=== PATIENT | female | born 1975 | race Caucasian/White ===

== ENCOUNTER → 2017-12-28 12:07 | Outpatient (CLI) | payer OTHER, SELFPAY ==
--- NOTE | 2017-12-28 12:11 | BI_ITS ---
MAMMOGRAPHY - BILATERAL SCREENING REASON FOR EXAM: Female, 42 years old. Routine annual screening examination. PERTINENT HISTORY: Aunt with breast cancer. Prior left needle biopsy. TECHNIQUE: Digital bilateral breast rodrigo (3D mammographic acquisition) in the CC and MLO projections. 2-D mediolateral oblique (MLO) and craniocaudad (CC) views of both breasts were obtained. CAD: Full Field Digital Mammography with Computer Added Detection was performed. COMPARISON: Comparison is made with prior study dated December 08, 2016. FINDINGS: Breast Composition: The breasts are heterogeneously dense, which may obscure small masses. There are no dominant masses or suspicious calcifications. A tissue clip marker is once again seen in the upper lateral portion of the left breast. No other significant abnormalities are identified. There has been no significant change since the prior study. BI/SCREENING MAMM (CAD), BILAT IMPRESSION: Stable bilateral screening mammogram. Yearly follow-up mammogram recommended. (A) ASSESSMENT CATEGORY: BIRADS Category 2: Benign. A letter regarding these results will be sent to the patient by the facility within 30 days. Approximately 10% of breast cancers are not detected by mammography. A normal mammogram should not delay biopsy of a clinically suspicious abnormality. [id number] Electronically Signed: Nathan Engel MD at 14:29 EDT Tel [phone], Service support ,
== END ==
PROVIDERS: Visit Provider Nurse Practitioner Women's Health
DX: Z12.31 Encounter for screening mammogram for malignant neoplasm of breast (principal)
CPT/HCPCS: 77063; 77067

== ENCOUNTER → 2018-08-09 10:22 | Outpatient (CLI) | payer OTHER, SELFPAY ==
[2018-06-14 13:39] VITALS: BMI 33.1
[2018-08-09 12:21] LABS: Absolute Lymphocyte Count 1.96 X10^3/ul (0.83-4.51); Absolute Neutrophil Count 3.7 X10^3/uL (2.0-7.7); Basophil# 0.04 X10^3/uL; Basophil% 0.6 % (0-1); Eosinophil# 0.17 X10^3/uL; Eosinophils% 2.7 % (0-5); Hematocrit 42.4 % (37-47); Hemoglobin 14.5 g/dl (12.0-15.0); Lymphocyte # 1.96 X10^3/ul (4.0); Lymphocyte % 31.4 % (19-41); Mean Corp Hgb Conc 34.2 g/gl (32-36); Mean Corpuscular Volume 90.8 fL (81-99); Monocyte# 0.37 X10^3/uL; Monocyte% 5.9 % (0-10); Neutrophil # 3.71 X10^3/uL (2.7-7.7); Neutrophil % 59.4 % (47-70); Platelet Count 374 K/mm3 (150-450); RBC Distribution Width CV 13.2 % (11.6-14.6); RBC Distribution Width SD 43.3 fl (35.1-43.9); Red Blood Count 4.67 M/mm3 (4.2-5.4); White Blood Count 6.3 K/mm3 (4.4-11.0)
[2018-08-09 12:25] LABS: POSITIVE COUNT NO; POSITIVE DIFFERENTIAL NO; POSITIVE MORPHOLOGY NO
[2018-08-09 12:31] LABS: Anion Gap 6 (5-15); BUN 11 mg/dL (7-18); Calcium,Total 8.5 mg/dL (8.5-10.1); Chloride 107 mmol/L (98-107); Cholesterol 214 mg/dL (200); Creatinine, Serum 0.92 mg/dL (0.55-1.02); EST Glomerular Filtration Rate 71 mL/min (>60); Est Glom Filt Rate - Afr Amer 86 mL/min (>60); Glucose 90 mg/dL (74-106); High Density Lipoprotein 54 mg/dL; Potassium 4.4 mmol/L (3.5-5.1); Sodium Level 140 mmol/L (136-145); Triglycerides 119 mg/dL; Very Low Density Lipoprotein 24 mg/dL (5-40)
[2018-08-09 12:33] LABS: Hemoglobin A1c 5.4 % (4.2-6.3)
== END ==
PROVIDERS: PCP Internal Medicine; Visit Provider Internal Medicine
DX: E78.5 Hyperlipidemia, unspecified (principal); E66.9 Obesity, unspecified; G43.909 Migraine, unspecified, not intractable, without status migrainosus
CPT/HCPCS: 36415; 80048; 80061; 83036; 85025

== ENCOUNTER → 2019-01-10 13:13 | Outpatient (CLI) | payer OTHER, SELFPAY ==
[2018-06-14 13:39] VITALS: BMI 33.1
--- NOTE | 2019-01-10 13:15 | BI_ITS ---
BILATERAL DIGITAL MAMMOGRAM WITH TOMOSYNTHESIS: Mediolateraloblique and craniocaudal views demonstrate no evidence of dominant parenchymal masses. No cluster of microcalcifications or architectural distortion is seen. No evidence of skin thickening is identified. There has been no significant change since 12/28/2017. Breast Density: The breast tissue is extremely dense which may lower the sensitivity of mammography. CAD was used to assist in final assessment. BI/SCREEN MAMM (CAD) W/JOSE BILAT IMPRESSION: NORMAL MAMMOGRAM BILATERALLY. ASSESSMENT CATEGORY: FINAL ASSESSMENT: BI-RAD CATEGORY I (NEGATIVE) YEARLY MAMMOGRAPHY RECOMMENDED Approximately 10% of breast cancers are not detected by mammography. A normal mammogram should not delay biopsy of a clinically suspicious abnormality. [id number] Electronically Signed: Donavan Liao, at 17:37 EDT Tel , Service support ,
== END ==
PROVIDERS: Family Provider Internal Medicine; PCP Internal Medicine; Referring Provider Nurse Practitioner Women's Health; Visit Provider Nurse Practitioner Women's Health
DX: Z12.31 Encounter for screening mammogram for malignant neoplasm of breast (principal)
CPT/HCPCS: 77063; 77067

== ENCOUNTER → 2019-05-10 09:36 | Outpatient (CLI) | payer OTHER, SELFPAY ==
[2019-05-10 09:20] VITALS: BMI 33.1
[2019-05-10 13:05] LABS: T4 Free Direct 0.91 ng/dL (0.76-1.46)
== END ==
PROVIDERS: PCP Internal Medicine; Referring Provider Internal Medicine; Visit Provider Internal Medicine
DX: N92.6 Irregular menstruation, unspecified (principal)
CPT/HCPCS: 36415; 84439; 84443

== ENCOUNTER → 2019-08-22 14:27 | Outpatient (CLI) | payer OTHER, SELFPAY ==
[2019-08-22 08:26] VITALS: BMI 33.1
[2019-08-28 06:50] LABS: HPV APTIMA, High Risk Negative (Negative)
== END ==
PROVIDERS: PCP Internal Medicine; Referring Provider Nurse Practitioner Women's Health; Visit Provider Nurse Practitioner Women's Health
DX: Z12.4 Encounter for screening for malignant neoplasm of cervix (principal)
CPT/HCPCS: 87624; 88175; G0145

== ENCOUNTER → 2019-10-17 14:17 | Outpatient (CLI) | payer OTHER, SELFPAY ==
[2019-10-17 13:40] VITALS: BMI 29.5
[2019-10-17 15:21] LABS: Absolute Lymphocyte Count 1.72 X10^3/uL (0.83-4.51); Absolute Neutrophil Count 5.8 X10^3/uL (2.0-7.7); Basophil# 0.06 X10^3/uL; Basophil% 0.7 % (0-1); Eosinophil# 0.18 X10^3/uL; Eosinophils% 2.1 % (0-5); Hematocrit 40.6 % (37-47); Hemoglobin 13.2 g/dL (12.0-15.0); Lymphocyte # 1.72 X10^3/ul (4.0); Lymphocyte % 20.3 % (19-41); Mean Corp Hgb Conc 32.5 g/dL (32-36); Mean Corpuscular Hgb 29.7 pg (27.0-32.0); Mean Corpuscular Volume 91.4 fL (81-99); Mean Platelet Vol. 10.2 fl (6.2-12.0); Monocyte# 0.68 X10^3/uL; NRBC Flagged by Analyzer 0 % (0-5); Neutrophil # 5.83 X10^3/uL (2.7-7.7); Neutrophil % 68.7 % (47-70); Platelet Count 418 K/mm3 (150-450); RBC Distribution Width SD 46.8 fl (35.1-43.9); Red Blood Count 4.44 M/mm3 (4.2-5.4); White Blood Count 8.5 K/mm3 (4.4-11.0)
[2019-10-17 16:14] LABS: AST(SGOT) 21 U/L (15-37); Alanine Aminotransfer ALT/SGPT 34 U/L (13-56); Albumin, Serum 3.5 g/dL (3.2-5.0); Alkaline Phosphatase 101 U/L (45-117); Anion Gap 4 (5-15); BUN 12 mg/dL (7-18); BUN/Creat Ratio 14.9 RATIO (10-20); Calcium,Total 8.6 mg/dL (8.5-10.1); Chloride 106 mmol/L (98-107); Cholesterol 190 mg/dL (200); Creatinine, Serum 0.81 mg/dL (0.55-1.02); EST Glomerular Filtration Rate 82 mL/min (>60); Est Glom Filt Rate - Afr Amer 99 mL/min (>60); Globulin 3.6 g/dL (2.2-4.2); Glucose 70 mg/dL (74-106); High Density Lipoprotein 62 mg/dL; Potassium 3.7 mmol/L (3.5-5.1); Protein, Total 7.1 g/dL (6.4-8.2); Sodium Level 138 mmol/L (136-145); Triglycerides 102 mg/dL; Very Low Density Lipoprotein 20 mg/dL (5-40)
== END ==
PROVIDERS: PCP Internal Medicine; Referring Provider Internal Medicine; Visit Provider Internal Medicine
DX: E78.5 Hyperlipidemia, unspecified (principal); I10 Essential (primary) hypertension
CPT/HCPCS: 36415; 80053; 80061; 85025

== ENCOUNTER → 2020-02-06 10:31 | Outpatient (CLI) | payer OTHER, SELFPAY ==
[2019-10-17 13:40] VITALS: BMI 29.5
[2020-01-23 14:44] VITALS: BMI 28.4
--- NOTE | 2020-02-06 10:32 | BI_ITS ---
MAMMOGRAPHY - BILATERAL SCREENING REASON FOR EXAM: Female, 44 years old. Routine annual screening examination. PERTINENT HISTORY: Aunt with breast cancer. Prior left needle biopsy. TECHNIQUE: Digital bilateral breast jose (3D mammographic acquisition) in the CC and MLO projections. 2-D mediolateral oblique (MLO) and craniocaudad (CC) views of both breasts were obtained. CAD: Full Field Digital Mammography with Computer Added Detection was performed. COMPARISON: Comparison is made with prior examination dated 01/10/2019 and 12/28/2017. FINDINGS: Breast Composition: The breasts are heterogeneously dense, which may obscure small masses. There are no dominant masses or suspicious calcifications. No other significant abnormalities are identified. There has been no significant change since the prior study. BI/SCREEN MAMM (CAD) W/JOSE BILAT IMPRESSION: Stable bilateral screening mammogram. Yearly follow-up mammogram recommended. (A) ASSESSMENT CATEGORY: BIRADS Category 2: Benign. A letter regarding these results will be sent to the patient by the facility within 30 days. Approximately 10% of breast cancers are not detected by mammography. A normal mammogram should not delay biopsy of a clinically suspicious abnormality. [id number] Electronically Signed: Nathan Engel, at 11:29 EST , Service support ,
== END ==
PROVIDERS: PCP Internal Medicine; Referring Provider Obstetrics & Gynecology; Visit Provider Obstetrics & Gynecology
DX: Z12.31 Encounter for screening mammogram for malignant neoplasm of breast (principal)
CPT/HCPCS: 77063; 77067

== ENCOUNTER → 2020-09-14 11:15 | Outpatient (CLI) | payer OTHER, SELFPAY ==
[2020-09-14 11:03] VITALS: BMI 28.0
[2020-09-14 12:26] LABS: Absolute Lymphocyte Count 1.48 X10^3/uL (0.83-4.51); Absolute Neutrophil Count 4.5 X10^3/uL (2.0-7.7); Basophil% 1.4 % (0-1); Eosinophils% 4.2 % (0-5); Hematocrit 41.3 % (37-47); Hemoglobin 13.6 g/dL (12.0-15.0); Lymphocyte # 1.48 X10^3/ul (0.83-4.51); Lymphocyte % 20.9 % (19-41); Mean Corp Hgb Conc 32.9 g/dL (32-36); Mean Corpuscular Hgb 28.6 pg (27.0-32.0); Mean Corpuscular Volume 86.9 fL (81-99); Mean Platelet Vol. 10.1 fl (6.2-12.0); Monocyte# 0.72 X10^3/uL; Monocyte% 10.2 % (0-10); NRBC Flagged by Analyzer 0 % (0-5); Neutrophil # 4.46 X10^3/uL (2.7-7.7); Platelet Count 457 K/mm3 (150-450); RBC Distribution Width CV 14.6 % (11.6-14.6); RBC Distribution Width SD 46.7 fl (35.1-43.9); Red Blood Count 4.75 M/mm3 (4.2-5.4); White Blood Count 7.1 K/mm3 (4.4-11.0)
[2020-09-14 12:57] LABS: ALB/GLOB Ratio 0.9 RATIO (0.9-2.4); AST(SGOT) 19 U/L (15-37); Alanine Aminotransfer ALT/SGPT 23 U/L (13-56); Albumin, Serum 3.5 g/dL (3.2-5.0); Alkaline Phosphatase 101 U/L (45-117); Anion Gap 6 (5-15); BUN 7 mg/dL (7-18); BUN/Creat Ratio 8.3 RATIO (10-20); Calcium,Total 8.6 mg/dL (8.5-10.1); Chloride 106 mmol/L (98-107); Cholesterol 220 mg/dL (200); Creatinine, Serum 0.84 mg/dL (0.55-1.02); EST Glomerular Filtration Rate 78 mL/min (>60); Est Glom Filt Rate - Afr Amer 94 mL/min (>60); Globulin 3.8 g/dL (2.2-4.2); Glucose 79 mg/dL (74-106); High Density Lipoprotein 72 mg/dL; Potassium 3.5 mmol/L (3.5-5.1); Protein, Total 7.3 g/dL (6.4-8.2); Sodium Level 139 mmol/L (136-145); Triglycerides 205 mg/dL; Very Low Density Lipoprotein 41 mg/dL (5-40)
== END ==
PROVIDERS: PCP Internal Medicine; Referring Provider Internal Medicine; Visit Provider Internal Medicine
DX: I10 Essential (primary) hypertension (principal); E78.5 Hyperlipidemia, unspecified; G44.209 Tension-type headache, unspecified, not intractable
CPT/HCPCS: 36415; 80053; 80061; 85025

== ENCOUNTER 2021-01-28 08:24 | Day surgery (SDC) | payer OTHER, SELFPAY ==
[2021-01-28 08:53] VITALS: BP 128/90; PULSE 83; RESP 18; TEMP 36.7; O2SAT 99; BMI 32.3
[2021-01-28 08:54] LABS: Internal QC Validated? YES +Cl - CLEAR BKGD; Pregnancy, Urine Negative Negative
[2021-01-28] MEDS: Lactated Ringers 1,000 ML 100 ML IV (09:06)
--- NOTE | 2021-01-28 09:45 | COLBX_PTH ---
PATIENT: OTTO HART LOC: EN U#:[id number] AGE/SX: 45/F ROOM: RE01/28/[address]: Dr. Rashid Cordon MD : 1975 BED: DIS: 01/28/2021 SPEC #: [id number] RECD: 01/28/21 15:11 STATUS: NILDA STRICKLAND #: [id number] CAMMY: 01/28/21 09:[address]: Rashid Cordon DEPT: SURGICAL PATHOLOGY RECD BY: Maryan Castillo ENTERED: 01/29/21 07:35 SP TYPE: COLON BX OTHR DR: Dr. Lilliana Hall MD Tissues: A - Transverse colon B - Rectum, NOS Procedures: Surgery Specimen Level IV HEADER OPERATION: Colonoscopy (MAC) PRE-OP DIAGNOSIS: Positive colorectal cancer screening using Cologuard TISSUE SUBMITTED: A ? Proximal transverse colon polyp, B ? Rectal polyp MICROSCOPIC DIAGNOSIS A. Proximal transverse colon polyp, biopsy: Fragments of tubular adenoma. B. Rectal polyp, biopsy: Hyperplastic polyp. KEYONNA:adeel 02/01/2021 MICROSCOPIC DESCRIPTION Slides are reviewed. GROSS DESCRIPTION A - Received in fixative is one container labeled with the patient's name and designated proximal transverse colon polyp. The specimen consists of a hernandez-pink polyp measuring 1.2 x 1 x 1 cm. The polyp is serially sectioned. Also present in the container are multiple fragments of hernandez-pink soft tissue measuring in aggregate 1.5 x 0.3 x 0.1 cm. The entire specimen is submitted in one cassette. B - Received in fixative is one container labeled with the patient's name and designated rectal polyp. The specimen consists of one irregular fragment of light hernandez soft tissue that measures 0.2 x 0.2 x 0.1 cm. The specimen is totally submitted in one cassette. / KEYONNA:adeel 01/29/21 TC:1 CPT: 36628 x2
--- NOTE | 2021-01-28 10:23 | PCM.HP.BLA ---
History and Physical Date of Admission: 01/28/21 Date of Service: 01/07/21 MR#:[id number]:[id number]: OTTO FRANCISCO [facility] #:[id number]:1975 Provider:Troy Calderon/Sex: 45/F [facility] Vital Signs 01/07/21 13:06 Height 5 ft 6 in Weight: 203 lb 6 oz BMI 32.8 BP 131/86 H Blood Pressure Location Rt brachial Position Sitting Respiration 18 Pulse 76 Pulse Source Monitor Temp 97.7 F L Temp Source Temporal Pulse Oximetry (%) 100 Oxygen Delivery Method room air Intake Visit Reasons: CSCOPE, FIT TEST Chief Complaint: Colonoscopy consult [employer] Required: No Is patient in pain?: No Allergies Latex, Natural Rubber Adverse Reaction (Verified 01/07/21 13:07) rash Medications omeprazole 20 mg tablet,delayed release 20 mg PO DAILY 02/08/18 [History Confirmed 01/07/21] ibuprofen 200 mg tablet 200 mg PO TID-QID PRN 06/14/18 [History Confirmed 01/07/21] duloxetine 30 mg capsule,delayed release 30 mg PO DAILY #90 cap 04/23/20 [Rx Confirmed 01/07/21] amlodipine 10 mg tablet See Rx Instructions .ROUTE .COMPLEX #30 tab 06/04/20 [Rx Confirmed 01/07/21] PFSH Medical History Breast lump Health care maintenance Migraines Positive colorectal cancer screening using Cologuard test Right Achilles tendinitis Surgical History H/O dilation and curettage H/O LEEP History of breast biopsy Family History Aunt Breast cancer Mother Melanoma Arthritis Diabetes Skin cancer Lung cancer Father Arthritis Diabetes Aunt Diabetes Grandfather Diabetes Grandfather Myocardial infarction CVA (cerebral vascular accident) Grandmother Myocardial infarction Social History number of children: 0 current occupational status: employed current occupation: [employer] Smoking Status: Never smoker alcohol intake: current alcohol intake frequency: holidays/special occasions only substance use type: does not use what type of physical activity do you participate in: walking seatbelt use: always do you feel safe at home: Yes additional social history: [employer] Ret[employer] Female Reproductive History Menstrual Ab spontaneous: 1 HPI HPI HPI: OTTO FRANCISCO, is a 45 F who presents to the office today for need to schedule diagnostic colonoscopy secondary to positive Cologuard that was performed routinely for insurance purposes. They are referred for surgical consultation from Dr. Hall. Patient has not had prior colonoscopy. Patient has no personal history of inflammatory bowel disease, diverticulitis, or colon cancer. They describe their bowel habits as characterized by mild constipation. They have approximately 1-2 bowel movements per day and do not spend significant time on the toilet but there is occasionally some significant straining. The stool itself is described as rabbit pellets. On rare occasion, Ms. Francisco sees experiences hemorrhoid problems but these are usually mild in nature and associated with some occasional bleeding, itching, and tissue protrusion. She notes this is not occurred anytime recently. Guarding her constipation, Ms. Francisco confirms she drinks plenty of water, but admits to eating a lot of cheese recently and her diet has not been as replete with vegetables given some social stressors of late. They do not regularly take fiber supplements. Patient has no family history of inflammatory bowel disease, diverticulitis, or colon cancer. The patient's weight is not stable and she admits to a approximately 20 pound weight gain, again related to the social stressors after mentioned. Ms. Francisco is asked about her history of gastroesophageal reflux disease for which she is currently prescribed omeprazole milligrams daily. She states that this medication has helped greatly in reducing her symptomatology. She occasionally notices symptoms with particularly spicy meals or when eating late in the day. She confirms that she is miserable without the medication but denies any breakthrough nausea or vomiting and overall states her symptoms are under good control. Ms. Francisco does not take anticoagulation/blood thinners of any kind. ROS General General: No weight change, appetite, fatigue, colon cancer, breast cancer or weakness HEENT HEENT: No difficulty swallowing, eye injury, eye surgery, swollen glands or hoarseness Endo Endocrine: No thyroid disease, diabetes mellitus, thyroid cancer, Hair loss, heat intolerance or cold intolerance Skin Skin: No rash or changing moles Breast Breast: No left breast lump, right breast lump, nipple discharge, breast pain, abnormal mammogram, abnormal US or breast enlargement Musc Musculoskeletal: Yes arthritis; No back problems, rheumatoid arthritis, gout or joint pain Cardio Cardiovascular: Yes high blood pressure; No murmur, pacemaker, heart disease, atrial fibrillation, heart attack, heart stent, palpitations, shortness of breat with exertion or chest pain Psych Psychiatric: Yes depression and anxiety; No hearing voices Resp Respiratory: No shortness of breath, No sleep apnea, No cough, No COPD, No asthma, No emphysema and No wheezing Gastro Gastrointestinal: No abdominal pain, No nausea or vomiting, No diarrhea, No constipation, No blood in stool, Yes acid reflux, Yes hemorrhoids, No ulcers, No gallbladder problem and No black,tarry stools Kannan Hematologic: No blood thinners, No blood disorders, No bleeding, No anemia and No blood clots Neuro Neurologic: No system reviewed and no additional complaints, except as documented, No as per HPI, No abnormal gait, No abnormal hearing, No abnormal movements, No abnormal speech, No behavioral changes, No burning sensations, No confusion, No convulsions, No disequilibrium, No dizziness, No localized weakness, No frequent falls, No headache(s), No lack of coordination, No loss of vision, No memory loss, No numbness, No other visual disturbances, No radicular pain, No restless legs, No sensory deficit, No syncope, No tingling, No tremor(s), No weakness and No other Exam Const General: cooperative, healthy appearing, comfortable and no acute distress Nutritional Appearance: average body habitus Orientation: alert, awake and oriented x3 Resp Effort & Inspection: normal respiratory effort Auscultation: no rales, no rhonchi and no wheezes Cardio Rate: regular rate Heart Sounds: S1 normal and S2 normal GI Inspection: normal to inspection, non-distended, no scars and no visible herniation Palpation: soft and nontender Assessment and Plan Assessment and Plan (1) Positive colorectal cancer screening using Cologuard test: Status: Acute Comment: This is a 45-year-old female with average colon cancer risk per history who presents with positive Cologuard test. Diagnostic colonoscopy indicated based on test result. Patient does have a history of hemorrhoids, although she denies any recent troubles with this diagnosis. Patient does have a history of constipation and I have recommended fiber supplementation based on her report of her dietary habits. We will plan to pursue an elective diagnostic colonoscopy under local MAC at our first mutual availability. Both procedure and prep were described in detail. Plan - Dr. Rashid Cordon MD: Plan will be to complete diagnostic colonoscopy on first mutually agreeable date under local MAC. Pre-procedure prep discussed and paper instructions provided. Patient is also made aware that she will need to have a high lift driver with her the day of the procedure. I have re-examined the patient. There are no clinical changes since date of exam. Patient states that she completed her prep without issue and her only complaint is having to limit dietary intake. She does remark that she had a hemorrhoid flare with the prep and has noticed some bleeding. Plan to proceed with diagnostic colonoscopy given recent positive Cologuard test.
[2021-01-28 12:00] VITALS: BP 109/58; BP 128/90; PULSE 76; RESP 16; TEMP 36.1; O2SAT 100
[2021-01-28 12:05] VITALS: BP 126/67; BP 128/90; PULSE 74; RESP 16; O2SAT 98
--- NOTE | 2021-01-28 12:05 | OP.COLON_ITS ---
Patient Name: Jovita Francisco Procedure Date: 01/28/2021 10:27 AM Date of : 1975 Age: 45 Procedure: Colonoscopy Indications: Positive Cologuard test Providers: Rashid Cordon MD Referring MD: Rashid Cordon MD Medicines: See the Anesthesia note for documentation of the administered medications Patient Profile: Refer to note in patient chart for documentation of history and physical. Last Colonoscopy: none. The patient's first colonoscopy is today. Complications: No immediate complications. Estimated blood loss: Minimal. Procedure: Pre-Anesthesia Assessment: - The anesthesia plan was to use moderate sedation/analgesia (conscious sedation). - The heart rate, respiratory rate, oxygen saturations, blood pressure, adequacy of pulmonary ventilation, and response to care were monitored throughout the procedure. After I obtained informed consent, the scope was passed under direct vision. Throughout the procedure, the patient's blood pressure, pulse, and oxygen saturations were monitored continuously. The pediatric colonoscope was introduced through the anus and advanced to the cecum, identified by the ileocecal valve. The colonoscopy was technically difficult and complex due to multiple diverticula in the colon. Successful completion of the procedure was aided by lavage. The colonoscopy was technically difficult and complex due to a tortuous colon. Successful completion of the procedure was aided by applying abdominal pressure. Scope In: 10:36:44 AM Scope Withdrawal Time 1 hour 1 minute 57 seconds Scope Out: 11:54:14 AM Total Procedure Duration Time 1 hour 17 minutes 30 seconds Findings: Three pedunculated polyps were found in the rectum and proximal transverse colon. The polyps were 5 to 15 mm in size. These polyps were removed with a hot snare. Resection was complete, but the polyp tissue was only partially retrieved. Estimated blood loss was minimal. The retroflexed view of the distal rectum and anal verge was normal and showed no anal or rectal abnormalities. No biopsies or other specimens were collected for this exam. Multiple medium-mouthed diverticula were found in the sigmoid colon. No biopsies or other specimens were collected for this exam. Impression: - Three 5 to 15 mm polyps in the rectum and in the proximal transverse colon, removed with a hot snare. Complete resection. Partial retrieval. - The distal rectum and anal verge are normal on retroflexion view. - Diverticulosis in the sigmoid colon. No specimens collected. Recommendation: - Discharge patient to home (via wheelchair). - Resume regular diet today. - Continue present medications. - Await pathology results. - Repeat colonoscopy [day] for surveillance based on pathology results. Procedure Code(s): --- Professional --- 16905, Colonoscopy, flexible; with removal of tumor(s), polyp(s), or other lesion(s) by snare technique Diagnosis Code(s): --- Professional --- K62.1, Rectal polyp D12.3, Benign neoplasm of transverse colon (hepatic flexure or splenic flexure) R19.5, Other fecal abnormalities K57.30, Diverticulosis of large intestine without perforation or abscess without bleeding CPT copyright 2017 [employer]. All rights reserved. The codes documented in this report are preliminary and upon congressional aide review may be revised to meet current compliance requirements. Rashid Cordon MD 01/28/2021 12:04:22 PM This report has been signed electronically. Number of Addenda: 0 Note Initiated On: 01/28/2021 10:27 AM
--- NOTE | 2021-01-28 12:05 | OP.CCLET_ITS ---
01/28/2021 Lilliana Hall MD [address] [place] [address] [place] [address] Re : Colonoscopy procedure for [facility] Dear Dr. Hall This procedure was performed on January. My impressions and recommendations are as follows: Impressions : - Three 5 to 15 mm polyps in the rectum and in the proximal transverse colon, removed with a hot snare. Complete resection. Partial retrieval. - The distal rectum and anal verge are normal on retroflexion view. - Diverticulosis in the sigmoid colon. No specimens collected. Recommendations : - Discharge patient to home (via wheelchair). - Resume regular diet today. - Continue present medications. - Await pathology results. - Repeat colonoscopy [day] for surveillance based on pathology results. My findings are described in the full procedure note, which is enclosed. If I can be of further assistance, please feel free to contact me at Doctor phone number(s): , Work: . Sincerely, Rashid Cordon MD 01/28/2021 12:04:22 PM This report has been signed electronically.
[2021-01-28 12:10] VITALS: BP 113/78; BP 128/90; PULSE 66; RESP 16; O2SAT 100
[2021-01-28 12:15] VITALS: BP 128/90; BP 143/78; PULSE 58; RESP 16; TEMP 36.1; O2SAT 100
[2021-01-28 12:37] VITALS: BP 128/90
== END 2021-01-28 12:41 | disposition home or self-care (01) ==
LOC: EN 08:27 → AC 08:27
PROVIDERS: Anesthesiology; PCP Internal Medicine; Referring Provider Surgery; Visit Provider Surgery
PROC: 0DJD8ZZ Inspection of Lower Intestinal Tract, Via Natural or Artificial Opening Endoscopic (ICD-10-PCS; CPT 45378; principal; 2021-01-28 09:40)
DX: Z12.11 Encounter for screening for malignant neoplasm of colon (principal); D12.3 Benign neoplasm of transverse colon; K62.1 Rectal polyp; K57.30 Diverticulosis of large intestine without perforation or abscess without bleeding; K56.2 Volvulus; K21.9 Gastro-esophageal reflux disease without esophagitis; R19.5 Other fecal abnormalities; I10 Essential (primary) hypertension; E78.5 Hyperlipidemia, unspecified; E66.9 Obesity, unspecified; Z68.32 Body mass index [BMI] 32.0-32.9, adult; Z20.822 Contact with and (suspected) exposure to COVID-19; Z79.899 Other long term (current) drug therapy
CPT/HCPCS: 45385; 81025; 87426; 88305; C9803; J7120; J2405

== ENCOUNTER → 2021-03-10 14:53 | Outpatient (CLI) | payer OTHER, SELFPAY ==
--- NOTE | 2021-03-10 14:55 | BI_ITS ---
MAMMOGRAPHY - BILATERAL SCREENING REASON FOR EXAM: Female, 45 years old. Routine annual screening examination. PERTINENT HISTORY: Aunt with breast cancer. TECHNIQUE: Digital bilateral breast jose (3D mammographic acquisition) in the CC and MLO projections. 2-D mediolateral oblique (MLO) and craniocaudad (CC) views of both breasts were obtained. CAD: Full Field Digital Mammography with Computer Added Detection was performed. COMPARISON: Comparison is made with prior study of 02/06/2020 and 01/10/2019. FINDINGS: Breast Composition: The breasts are heterogeneously dense, which may obscure small masses. There are no dominant masses or suspicious calcifications. A tissue clip marker is seen in the upper lateral aspect of the left breast. No other significant abnormalities are identified. There has been no significant change since the prior study. BI/SCRN MAMM (CAD)W/JOSE BILAT IMPRESSION: Stable bilateral screening mammogram. Yearly follow-up mammogram recommended. (A) ASSESSMENT CATEGORY: BIRADS Category 2: Benign. A letter regarding these results will be sent to the patient by the facility within 30 days. Approximately 10% of breast cancers are not detected by mammography. A normal mammogram should not delay biopsy of a clinically suspicious abnormality. [id number] Electronically Signed: Nathan Engel MD at 15:30 EST , Service support ,
== END ==
PROVIDERS: PCP Internal Medicine; Referring Provider Internal Medicine; Visit Provider Internal Medicine
DX: Z12.31 Encounter for screening mammogram for malignant neoplasm of breast (principal); Z80.3 Family history of malignant neoplasm of breast
CPT/HCPCS: 77063; 77067

== ENCOUNTER → 2021-09-08 | Outpatient (CLI) | payer OTHER, SELFPAY ==
[2021-09-08 16:51] LABS: Absolute Lymphocyte Count 2.12 X10^3/uL (0.83-4.51); Absolute Neutrophil Count 5.1 X10^3/uL (2.0-7.7); Basophil# 0.06 X10^3/uL; Basophil% 0.7 % (0-1); Eosinophils% 2.5 % (0-5); Hemoglobin 12.5 g/dL (12.0-15.0); Lymphocyte # 2.12 X10^3/ul (0.83-4.51); Mean Corp Hgb Conc 32.9 g/dL (32-36); Mean Corpuscular Hgb 27.8 pg (27.0-32.0); Mean Corpuscular Volume 84.6 fL (81-99); Mean Platelet Vol. 10.2 fl (6.2-12.0); Monocyte# 0.67 X10^3/uL; Monocyte% 8.2 % (0-10); NRBC Flagged by Analyzer 0 % (0-5); Neutrophil # 5.07 X10^3/uL (2.7-7.7); Neutrophil % 62.2 % (47-70); Platelet Count 470 K/mm3 (150-450); RBC Distribution Width CV 15.9 % (11.6-14.6); Red Blood Count 4.49 M/mm3 (4.2-5.4); White Blood Count 8.2 K/mm3 (4.4-11.0)
[2021-09-08 20:05] LABS: ALB/GLOB Ratio 1.1 RATIO (0.9-2.4); AST(SGOT) 21 U/L (15-37); Alanine Aminotransfer ALT/SGPT 33 U/L (13-56); Albumin, Serum 3.7 g/dL (3.2-5.0); Alkaline Phosphatase 94 U/L (45-117); Anion Gap 8 (5-15); BUN 10 mg/dL (7-18); BUN/Creat Ratio 11.2 RATIO (10-20); Calcium,Total 8.8 mg/dL (8.5-10.1); Chloride 105 mmol/L (98-107); Cholesterol 213 mg/dL (200); Creatinine, Serum 0.89 mg/dL (0.55-1.02); EST Glomerular Filtration Rate 72 mL/min (>60); Est Glom Filt Rate - Afr Amer 87 mL/min (>60); Globulin 3.4 g/dL (2.2-4.2); Glucose 97 mg/dL (74-106); High Density Lipoprotein 60 mg/dL; Protein, Total 7.1 g/dL (6.4-8.2); Sodium Level 139 mmol/L (136-145); Triglycerides 111 mg/dL; Very Low Density Lipoprotein 22 mg/dL (5-40)
== END | disposition home or self-care (01) ==
LOC: BIMLAB 15:35
PROVIDERS: PCP Internal Medicine; Referring Provider Internal Medicine; Visit Provider Internal Medicine
DX: I10 Essential (primary) hypertension (principal); E78.5 Hyperlipidemia, unspecified
CPT/HCPCS: 36415; 80053; 80061; 85025

== ENCOUNTER → 2022-08-01 | Outpatient (CLI) | payer OTHER, SELFPAY ==
[2022-08-01 15:06] LABS: Absolute Lymphocyte Count 1.87 X10^3/uL (0.83-4.51); Absolute Neutrophil Count 4.7 X10^3/uL (2.0-7.7); Basophil# 0.06 X10^3/uL; Basophil% 0.8 % (0-1); Eosinophil# 0.19 X10^3/uL; Eosinophils% 2.6 % (0-5); Hematocrit 41.7 % (37-47); Hemoglobin 13.1 g/dL (12.0-15.0); Lymphocyte # 1.87 X10^3/ul (0.83-4.51); Lymphocyte % 25.3 % (19-41); Mean Corp Hgb Conc 31.4 g/dL (32-36); Mean Corpuscular Hgb 27.3 pg (27.0-32.0); Mean Corpuscular Volume 86.9 fL (81-99); Mean Platelet Vol. 10.5 fl (6.2-12.0); Monocyte# 0.58 X10^3/uL; Monocyte% 7.8 % (0-10); NRBC Flagged by Analyzer 0 % (0-5); Neutrophil # 4.69 X10^3/uL (2.7-7.7); Neutrophil % 63.4 % (47-70); Platelet Count 403 K/mm3 (150-450); RBC Distribution Width CV 15.9 % (11.6-14.6); RBC Distribution Width SD 50.8 fl (35.1-43.9); White Blood Count 7.4 K/mm3 (4.4-11.0)
[2022-08-01 15:20] LABS: ALB/GLOB Ratio 0.9 RATIO (0.9-2.4); AST(SGOT) 25 U/L (15-37); Alanine Aminotransfer ALT/SGPT 39 U/L (13-56); Albumin, Serum 3.6 g/dL (3.2-5.0); Alkaline Phosphatase 101 U/L (45-117); Anion Gap 8 (5-15); BUN 6 mg/dL (7-18); BUN/Creat Ratio 6.9 RATIO (10-20); Chloride 105 mmol/L (98-107); Cholesterol 167 mg/dL (200); Creatinine, Serum 0.87 mg/dL (0.55-1.02); EST Glomerular Filtration Rate 74 mL/min (>60); Est Glom Filt Rate - Afr Amer 90 mL/min (>60); Globulin 4.2 g/dL (2.2-4.2); Glucose 97 mg/dL (74-106); High Density Lipoprotein 64 mg/dL; Potassium 3.3 mmol/L (3.5-5.1); Protein, Total 7.8 g/dL (6.4-8.2); Sodium Level 139 mmol/L (136-145); Triglycerides 96 mg/dL; Very Low Density Lipoprotein 19 mg/dL (5-40)
== END | disposition home or self-care (01) ==
LOC: BIMLAB 13:46
PROVIDERS: PCP Internal Medicine; Referring Provider Internal Medicine; Visit Provider Internal Medicine
DX: I10 Essential (primary) hypertension (principal)
CPT/HCPCS: 36415; 80053; 80061; 85025

== ENCOUNTER → 2022-08-18 | Outpatient (CLI) | payer OTHER, SELFPAY ==
--- NOTE | 2022-08-18 07:36 | BI_ITS ---
MAMMOGRAPHY - BILATERAL SCREENING REASON FOR EXAM: Female, 46 years old. Routine annual screening examination. PERTINENT HISTORY: Aunt with breast cancer. History of prior left needle biopsy. TECHNIQUE: Digital bilateral breast jose (3D mammographic acquisition) in the CC and MLO projections. 2-D mediolateral oblique (MLO) and craniocaudad (CC) views of both breasts were obtained. CAD: Full Field Digital Mammography with Computer Added Detection was performed. COMPARISON: Comparison is made with prior study dated March 10, 2021 and February 06, 2020. FINDINGS: Breast Composition: The breasts are heterogeneously dense, which may obscure small masses. There are no dominant masses or suspicious calcifications. A tissue clip marker is once again seen in the upper lateral aspect of the left breast. No other significant abnormalities are identified. There has been no significant change since the prior study. BI/SCRN MAMM (CAD)W/JOSE BILAT IMPRESSION: Stable bilateral screening mammogram. Yearly follow-up mammogram recommended. (A) ASSESSMENT CATEGORY: BIRADS Category 2: Benign. A letter regarding these results will be sent to the patient by the facility within 30 days. Approximately 10% of breast cancers are not detected by mammography. A normal mammogram should not delay biopsy of a clinically suspicious abnormality. [id number] Electronically Signed: Nathan Engel MD at 8:34 EDT ,
== END | disposition home or self-care (01) ==
LOC: OPBI 07:35
PROVIDERS: PCP Internal Medicine; Referring Provider Internal Medicine; Visit Provider Internal Medicine
DX: Z12.31 Encounter for screening mammogram for malignant neoplasm of breast (principal)
CPT/HCPCS: 77063; 77067

== ENCOUNTER → 2022-12-02 | Outpatient (CLI) | payer OTHER, SELFPAY ==
[2022-12-02 13:13] LABS: Anion Gap 6 (5-15); BUN 6 mg/dL (7-18); BUN/Creat Ratio 7.9 RATIO (10-20); Calcium,Total 8.7 mg/dL (8.5-10.1); Chloride 106 mmol/L (98-107); Creatinine, Serum 0.76 mg/dL (0.55-1.02); EST Glomerular Filtration Rate 87 mL/min (>60); Est Glom Filt Rate - Afr Amer 105 mL/min (>60); Glucose 91 mg/dL (74-106); Potassium 4.4 mmol/L (3.5-5.1); Sodium Level 139 mmol/L (136-145)
== END | disposition home or self-care (01) ==
LOC: BIMLAB 11:16
PROVIDERS: PCP Internal Medicine; Visit Provider Internal Medicine
DX: I10 Essential (primary) hypertension (principal)
CPT/HCPCS: 36415; 80048

== ENCOUNTER → 2023-08-21 | Outpatient (CLI) | payer OTHER, SELFPAY ==
[2023-08-21 12:40] LABS: Absolute Lymphocyte Count 1.38 X10^3/uL (0.83-4.51); Absolute Neutrophil Count 3.6 X10^3/uL (2.0-7.7); Basophil# 0.06 X10^3/uL; Eosinophils% 6.8 % (0-5); Hematocrit 40.9 % (37-47); Hemoglobin 13.2 g/dL (12.0-15.0); Lymphocyte # 1.38 X10^3/ul (0.83-4.51); Lymphocyte % 23.4 % (19-41); Mean Corp Hgb Conc 32.3 g/dL (32-36); Mean Corpuscular Volume 86.7 fL (81-99); Mean Platelet Vol. 10.4 fl (6.2-12.0); Monocyte# 0.44 X10^3/uL; Monocyte% 7.5 % (0-10); NRBC Flagged by Analyzer 0 % (0-5); Platelet Count 440 K/mm3 (150-450); RBC Distribution Width CV 16.2 % (11.6-14.6); RBC Distribution Width SD 50.9 fl (35.1-43.9); Red Blood Count 4.72 M/mm3 (4.2-5.4); White Blood Count 5.9 K/mm3 (4.4-11.0)
[2023-08-21 13:18] LABS: ALB/GLOB Ratio 0.9 RATIO (0.9-2.4); AST(SGOT) 38 U/L (15-37); Alanine Aminotransfer ALT/SGPT 51 U/L (13-56); Albumin, Serum 3.5 g/dL (3.2-5.0); Alkaline Phosphatase 105 U/L (45-117); Anion Gap 9 (5-15); BUN 6 mg/dL (7-18); BUN/Creat Ratio 6.4 RATIO (10-20); Calcium,Total 8.5 mg/dL (8.5-10.1); Chloride 105 mmol/L (98-107); Cholesterol 217 mg/dL (200); Creatinine, Serum 0.93 mg/dL (0.55-1.02); EST Glomerular Filtration Rate 68 mL/min (>60); Est Glom Filt Rate - Afr Amer 82 mL/min (>60); Glucose 112 mg/dL (74-106); High Density Lipoprotein 50 mg/dL; Potassium 3.1 mmol/L (3.5-5.1); Protein, Total 7.5 g/dL (6.4-8.2); Sodium Level 139 mmol/L (136-145); Triglycerides 177 mg/dL; Very Low Density Lipoprotein 35 mg/dL (5-40)
[2023-08-21 16:32] LABS: Hemoglobin A1c 5.3 % (3.8-5.6)
== END | disposition home or self-care (01) ==
LOC: BIMLAB 09:27
PROVIDERS: PCP Internal Medicine; Visit Provider Internal Medicine
DX: Z00.00 Encounter for general adult medical examination without abnormal findings (principal); R73.9 Hyperglycemia, unspecified
CPT/HCPCS: 36415; 80053; 80061; 83036; 85025

== ENCOUNTER → 2023-08-30 | Outpatient (CLI) | payer OTHER, SELFPAY ==
--- NOTE | 2023-08-30 07:32 | BI_ITS ---
MAMMOGRAPHY - BILATERAL SCREENING REASON FOR EXAM: Female, 48 years old. Routine annual screening examination. PERTINENT HISTORY: Aunt with breast cancer. History of prior left ultrasound guided needle biopsy. TECHNIQUE: Digital bilateral breast jose (3D mammographic acquisition) in the CC and MLO projections. 2-D mediolateral oblique (MLO) and craniocaudad (CC) views of both breasts were obtained. CAD: Full Field Digital Mammography with Computer Added Detection was performed. COMPARISON: Comparison is made with prior study August 18, 2022. FINDINGS: Breast Composition: The breasts are heterogeneously dense, which may obscure small masses. There are no dominant masses or suspicious calcifications. A tissue clip marker is once again seen in the upper lateral aspect of the left breast No other significant abnormalities are identified. There has been no significant change since the prior study. BI/SCRN MAMM (CAD)W/JOSE BILAT IMPRESSION: Stable bilateral screening mammogram. Yearly follow-up mammogram recommended. (A) ASSESSMENT CATEGORY: BIRADS Category 2: Benign. A letter regarding these results will be sent to the patient by the facility within 30 days. Approximately 10% of breast cancers are not detected by mammography. A normal mammogram should not delay biopsy of a clinically suspicious abnormality. [id number] Electronically Signed: Nathan Engel MD at 10:45 EDT ,
== END | disposition home or self-care (01) ==
LOC: OPBI 07:32
PROVIDERS: PCP Internal Medicine; Referring Provider Internal Medicine; Visit Provider Internal Medicine
DX: Z12.31 Encounter for screening mammogram for malignant neoplasm of breast (principal)
CPT/HCPCS: 77063; 77067

== ENCOUNTER → 2023-09-13 | Outpatient (CLI) | payer OTHER, SELFPAY ==
[2023-09-13 17:22] LABS: Anion Gap 5 (5-15); BUN 9 mg/dL (7-18); BUN/Creat Ratio 10.1 RATIO (10-20); Chloride 102 mmol/L (98-107); Creatinine, Serum 0.89 mg/dL (0.55-1.02); EST Glomerular Filtration Rate 72 mL/min (>60); Est Glom Filt Rate - Afr Amer 87 mL/min (>60); Glucose 96 mg/dL (74-106); Potassium 4.4 mmol/L (3.5-5.1); Sodium Level 133 mmol/L (136-145)
== END | disposition home or self-care (01) ==
LOC: BIMLAB 15:41
PROVIDERS: PCP Internal Medicine; Visit Provider Internal Medicine
DX: E87.6 Hypokalemia (principal)
CPT/HCPCS: 36415; 80048

== ENCOUNTER 2023-10-12 07:02 | Day surgery (SDC) | payer OTHER, SELFPAY ==
[2023-10-12] MEDS: Lactated Ringers 1,000 ML 15 ML IV (07:15)
[2023-10-12 07:20] LABS: Internal QC Validated? YES +Cl - CLEAR BKGD; Pregnancy, Urine Negative Negative; Record Kit Lot#,Urine Preg HCG0000772476
[2023-10-12 07:24] VITALS: BP 132/63; PULSE 61; RESP 16; TEMP 36.3; O2SAT 100; BMI 31.3
--- NOTE | 2023-10-12 07:49 | H&P.OPEN ---
[facility] - General General Date of Service: 10/12/23 Chief Complaint: Surveillance colonoscopy [facility] Narrative OTTO FRANCISCO, is a 48 F who presents for surveillance colonoscopy. Mrs. Francisco is known to me from a prior colonoscopy performed 3 years ago in 2020 when she is found to have tubular adenoma of the transverse colon as well as a benign rectal polyp. She confirms her preappointment questionnaire that she has not experienced any change in her bowel habits-and particularly denies any notice of blood. Offhandedly she mentions that she does have a hemorrhoid that is flared and wonders if something can be done about this during today's procedure. She also denies any family history of GI illness to include diverticulitis, inflammatory bowel disease, or colon cancer. Lastly she confirms that her prep was completed successfully and that her output is now clear. [facility] Medical History (Updated 10/12/23 @ 07:[address] Rashid Cordon MD) Alcohol use Arthritis Hx of colonic polyps Blood glucose elevated Hypokalemia Preventative health care Colon cancer screening Dog bite of face Wears glasses Wears contact lenses Cancer Depression Anxiety Gastric reflux Non-smoker Hypertension Positive colorectal cancer screening using Cologuard test Health care maintenance Right Achilles tendinitis Migraines Breast lump Home Medications ?Medication ?Instructions ?Recorded ?Last Taken ?Type ibuprofen 200 mg tablet 200 mg PO TID-QID PRN Pain 06/14/18 Unknown History ibuprofen 200 mg capsule (Advil 200 mg PO Q6H PRN pain 05/31/22 Unknown History Migraine) albuterol sulfate 90 mcg/actuation See Rx Instructions .Route 09/29/22 Unknown Rx aerosol inhaler .COMPLEX #8.5 ea amlodipine 10 mg tablet 10 mg PO DAILY #90 tabs 12/02/22 10/12/23 Rx duloxetine 30 mg capsule,delayed See Rx Instructions .Route 12/02/22 10/12/23 Rx release .COMPLEX #90 caps omeprazole 20 mg tablet,delayed 20 mg PO DAILY #90 tabs 04/18/23 10/12/23 Rx release sumatriptan succinate 25 mg tablet See Rx Instructions PO .COMPLEX 08/21/23 Unknown Rx (Imitrex) #10 tabs potassium chloride 20 mEq 20 meq PO DAILY #30 TABLETS 10/10/23 10/11/23 Rx tablet,extended release propranolol 60 mg capsule,24 60 mg PO QHS #30 caps 10/10/23 10/11/23 Rx hr,extended release Allergy/AdvReac Type Severity Reaction Status Date / Time Latex, Natural Rubber AdvReac rash Verified 10/12/23 07:23 Family History Aunt Breast cancer Mother Melanoma Arthritis Diabetes Skin cancer Lung cancer Father Arthritis Diabetes Aunt Diabetes Grandfather Diabetes Grandfather Myocardial infarction CVA (cerebral vascular accident) Grandmother Myocardial infarction Surgical History Hx of colonoscopy History of breast biopsy H/O LEEP H/O dilation and curettage Social History (Updated 08/23/23 @ 09:49 by Hollie Cruz) number of children: 0 current occupational status: employed current occupation: [employer] Smoking Status: Never smoker alcohol intake: current alcohol intake frequency: holidays/special occasions only substance use type: does not use what type of physical activity do you participate in: walking seatbelt use: always do you feel safe at home: Yes Past Medical/Surgical History Planned Operation Planned Operative Procedure(s): COLONOSCOPY Previous Hospitalizations/Surgeries HX Hospitalizations: No Any Problems With Anesthesia: No You/Your Family Experience Fever (Hyperthermia) With Anes: No Cholinesterase deficiency: No Cardiovascular Hx Hypertension: Yes Respiratory Hx Sleep Apnea: No Hx Respiratory Tract Infection/Cold (presently): No Do You Snore Loudly (louder than talking or can be heard): Yes Do You Often Feel Tired/ Fatigued/ Sleepy Dring Daytime?: Yes Has Anyone Observed You Stop Breathing During Sleep?: No Result (for STOP score): Positive Smoking Status: Never smoker Neurological Does patient have nerve stimulator: No Reproduction : No Miscellaneous Recent Exposure to Contagious Disease: No Allergies Latex, Natural Rubber Adverse Reaction (Verified 10/12/23 07:23) rash Discharge Who Could Help: SIGNIFICANT OTHER After D/C, Where Do you Plan to Go: Return Home Vital Signs Vital Signs Vital Signs: 10/12/23 07:24 10/12/23 07:24 Temperature 97.4 F L Temperature Source Temporal Pulse Rate 61 Respiratory Rate 16 Respiratory Pattern Normal Blood Pressure 132/63 H Blood Pressure Mean 86 Blood Pressure Source Monitor Blood Pressure Position Semi-Fowlers Blood Pressure Location Right Arm Pulse Ox 100 Oxygen Delivery Method Room Air Weight Weight: 194 lb 0.108 oz Body Mass Index (BMI) 31.3 Physical Exam Const alert, oriented x3 and no apparent distress General Appearance: cooperative and comfortable Resp normal respiratory effort GI GI Narrative: Soft, nondistended, nontender to palpation x 4 quadrants Assessment & Plan Assessment/Plan (1) Hx of colonic polyps: PLAN: Patient is a 48-year-old female who presents for surveillance colonoscopy after a prior screening colonoscopy January 2021 found her to have tubular adenoma of the transverse colon as well as a hyperplastic polyp of the rectum. She presents today stating that she is in her usual state of health apart from a active hemorrhoid flare. Informed her that this could be addressed endoscopically if it is determined to be inflammation of a internal hemorrhoid and we will addend her consent for possible hemorrhoid banding. If, however, it is a external hemorrhoid I would suggest just expectant management. She denies any development of interval GI concerns otherwise and we will plan to proceed for surveillance colonoscopy given that she confirms she completed a prep for today's procedure and denies any questions. Surgery Risks - Colonoscopy Risks Include but are not Limited To: Risks include but are not limited to: Bleeding, perforation requiring further surgery, inability to complete colonoscopy requiring barium enema.
[2023-10-12 08:26] VITALS: BP 132/63; PULSE 61; RESP 16; TEMP 36.3; O2SAT 100
--- NOTE | 2023-10-12 08:26 | PRE.ANES_ITS ---
ASA Classification* ASA Classification ASA Classification: 2 and 3 Assessment & Plan Anesthesia* Anesthesia Assessment Anesthesia Assessment: Discussed sedation and/or anesthesia options, risks, benefits, and alternatives with patient/parents/legal guardian/POA. Questions invited. The patient/parents/legal guardian/POA seems to understand and agrees to proceed with anesthesia plan. Reviewed the physical assessment, medical history, allergy history and patient home medications list prior to surgery/procedure/anesthetic and documented any changes. Performed airway and anesthesia risk assessments. Anesthesia Type Anesthesia Type: MAC (see written pre anesthesia record for full assessment) Anesthesia Focused Assessment* Temperature: 97.4 F Pulse Rate: 61 Blood Pressure: 132/63 Respiratory Rate: 16 Pulse Ox: 100 Airway Assessment Mouth opens: >3 cm Mallampati Score: II Focused Labs Anesthesia Preop lab: CBC WBC 5.9 K/mm3 (4.4-11.0) 08/21/23 09:27 RBC 4.72 M/mm3 (4.2-5.4) 08/21/23 09:27 Hgb 13.2 g/dL (12.0-15.0) 08/21/23 09:27 Hct 40.9 % (37-47) 08/21/23 09:27 Plt Count 440 K/mm3 (150-450) 08/21/23 09:27 CHEMISTRY Potassium 4.4 mmol/L (3.5-5.1) 09/13/23 15:41 Sodium 133 mmol/L (136-145) L 09/13/23 15:41 BUN 9 mg/dL (7-18) 09/13/23 15:41 Creatinine 0.89 mg/dL (0.55-1.02) 09/13/23 15:41 Glucose 96 mg/dL (74-106) 09/13/23 15:41 TSH 1.20 uIU/mL (0.358-3.74) 05/10/19 09:37 COAG Urine Test Negative Negative 10/12/23 07:10 Pre-Assessment Diagnosis/Proposed Procedure Planned Operative Procedure(s): COLONOSCOPY Anesthesia History Anesthesia History - explosive operator bomb: Anesthesia History - explosive operator bomb Hx Hospitalization No 10/12/23 07:52 Any Problems With Anesthesia No 10/12/23 07:52 Cholinesterase deficiency No 10/12/23 07:52 You/Your Family Experience No 10/12/23 07:52 fever (hyperthermia) with Relationship Recent Exposure to Contagious No 10/12/23 07:52 Disease Does patient have nerve No 10/12/23 07:52 stimulator Patient instructed to have device shut off --Does patient have Pacemaker No 10/12/23 07:24 or ICD? When Was Last Pacemaker Check QUESTION #4 FULL TEXT: You/Your Family Experience fever (hyperthermia) with Anesthesia Last Oral Intake Last Oral intake: Last Oral Intake NPO since 04:30 10/12/23 07:24 Meds taken in AM with sips of Yes 10/12/23 07:24 water? Meds patient instructed to take am of surgery PONV PONV - explosive operator bomb: PONV - explosive operator bomb Female Yes 10/03/23 14:44 HX of Motion Sickness No 10/03/23 14:44 HX of N/V After Surgery No 10/03/23 14:44 Non-Smoker Yes 10/03/23 14:44 Duration of Surgery greater No 10/03/23 14:44 than 60 minutes Number of Risk Factors 2 10/03/23 14:44 PONV Score Moderate Risk 10/03/23 14:44 Height & Weight Height & Weight: Anesthesia: Height & Weight Height 5 ft 6 in 10/12/23 07:24 Weight: 88 kg 10/12/23 07:24 Body Mass Index (BMI) 31.3 10/12/23 07:24 Respiratory Assessment Respiratory Assessment - explosive operator bomb: Respiratory Tract Infection Hx - explosive operator bomb Hx Respiratory Tract Infection No 10/12/23 07:52 STOP Sleep Apnea STOP Sleep Apnea - explosive operator bomb: STOP Sleep Apnea - explosive operator bomb Hx Hypertension Yes 10/12/23 07:52 Hx Sleep Apnea No 10/12/23 07:52 CPAP BIPAP Do you snore loudly (louder Yes 10/12/23 07:52 than talking or can be heard Do you often feel tired/ Yes 10/12/23 07:52 fatigued/ sleepy during daytime? Has anyone observed you stop No 10/12/23 07:52 breathing during sleep? STOP Results Positive 10/12/23 07:52 QUESTION #5 FULL TEXT : Do you snore loudly (louder than talking or can be heard through closed doors)? Tobacco Use History Tobacco Use History - explosive operator bomb: Tobacco Use History - explosive operator bomb Tobacco Use Smoking Status Never smoker 10/12/23 07:52 Hx Tobacco Use No 10/03/23 14:44 Years Smoking Packs Smoked per Day Smoking Cessation Date was within the last 15 years Hx Smoking Cessation Date Hx Smoking Cessation Counseling Hematologic Medial History Hematologic Hx - explosive operator bomb: Hematologic Medical Hx - conical mixer Hx of Blood Transfusion No 10/03/23 14:44 Hx of Transfusion in last 3 No 10/03/23 14:44 Months Date of Last Transfusion (if within last 3 months) Ever experience any problems No 10/03/23 14:44 with transfusion(s)? Specify any problems Hx of Preganancy in last 3 No 10/03/23 14:44 Months Nurse Filling Out Transfusion SFRANTZ 10/03/23 14:44 & Questions: Date: 10/03/23 10/03/23 14:44 Time: 14:45 10/03/23 14:44 Patient unable to answer at this time (ie. confused, unrespo /Reproduction History /Reproductive History - explosive operator bomb: /Reproductive Hx- explosive operator bomb Hx Now No 10/12/23 07:52 Gestational Age (in weeks): EDC: Hx Hx Para Hx Section SAB No 10/03/23 14:44 Active Medications Active Medications: Current Medications Generic Name Dose Route Start Last Admin Trade Name Freq PRN Reason Stop Dose Admin Lactated Ringer's 1,000 mls @ 15 mls/hr 10/12/23 07:15 10/12/23 07:15 IV 15 mls/hr .Q48H JASMIN Administration PFSH Medical History Alcohol use Arthritis Hx of colonic polyps Blood glucose elevated Hypokalemia Preventative health care Colon cancer screening Dog bite of face Wears glasses Wears contact lenses Cancer Depression Anxiety Gastric reflux Non-smoker Hypertension Positive colorectal cancer screening using Cologuard test Health care maintenance Right Achilles tendinitis Migraines Breast lump Home Medications ?Medication ?Instructions ?Recorded ?Last Taken ?Type ibuprofen 200 mg tablet 200 mg PO TID-QID PRN Pain 06/14/18 Unknown History ibuprofen 200 mg capsule (Advil 200 mg PO Q6H PRN pain 05/31/22 Unknown History Migraine) albuterol sulfate 90 mcg/actuation See Rx Instructions .Route 09/29/22 Unknown Rx aerosol inhaler .COMPLEX #8.5 ea amlodipine 10 mg tablet 10 mg PO DAILY #90 tabs 12/02/22 10/12/23 Rx duloxetine 30 mg capsule,delayed See Rx Instructions .Route 12/02/22 10/12/23 Rx release .COMPLEX #90 caps omeprazole 20 mg tablet,delayed 20 mg PO DAILY #90 tabs 04/18/23 10/12/23 Rx release sumatriptan succinate 25 mg tablet See Rx Instructions PO .COMPLEX 08/21/23 Unknown Rx (Imitrex) #10 tabs potassium chloride 20 mEq 20 meq PO DAILY #30 TABLETS 10/10/23 10/11/23 Rx tablet,extended release propranolol 60 mg capsule,24 60 mg PO QHS #30 caps 10/10/23 10/11/23 Rx hr,extended release Allergy/AdvReac Type Severity Reaction Status Date / Time Latex, Natural Rubber AdvReac rash Verified 10/12/23 07:23 Family History Aunt Breast cancer Mother Melanoma Arthritis Diabetes Skin cancer Lung cancer Father Arthritis Diabetes Aunt Diabetes Grandfather Diabetes Grandfather Myocardial infarction CVA (cerebral vascular accident) Grandmother Myocardial infarction Surgical History Hx of colonoscopy History of breast biopsy H/O LEEP H/O dilation and curettage Social History number of children: 0 current occupational status: employed current occupation: [employer] Smoking Status: Never smoker alcohol intake: current alcohol intake frequency: holidays/special occasions only substance use type: does not use what type of physical activity do you participate in: walking seatbelt use: always do you feel safe at home: Yes Review of Systems (Anesthesia) ROS Narrative System reviewed and no additional complaints, except as documented.
--- NOTE | 2023-10-12 08:30 | COLBX_PTH ---
PATIENT: OTTO HART LOC: EN U#:[id number] AGE/SX: 48/F ROOM: RE10/12/[address]: Dr. Rashid Cordon MD : 1975 BED: DIS: 10/12/2023 SPEC #: [id number] RECD: 10/12/23 10:23 STATUS: NILDA STRICKLAND #: [id number] CAMMY: 10/12/23 08:[address]: Rashid Cordon DEPT: SURGICAL PATHOLOGY RECD BY: Sheila Servin ENTERED: 10/12/23 12:19 SP TYPE: COLON BX OTHR DR: Dr. Lilliana Hall MD Tissues: Rectum, NOS Procedures: Surgery Specimen Level IV HEADER OPERATION: Colonoscopy, biopsy, hemorrhoid banding PRE-OP DIAGNOSIS: History of colonic polyps TISSUE SUBMITTED: Rectal mucosal biopsy MICROSCOPIC DIAGNOSIS Rectal mucosal, biopsy: Fragments of colonic mucosa, no pathologic diagnosis. KEYONNA/ 10/13/2023 MICROSCOPIC DESCRIPTION Slides are reviewed. GROSS DESCRIPTION Received in fixative is one container labeled with the patient's name and designated Rectal mucosal biopsy. The specimen consists of two irregular fragments of light hernandez soft tissue that in aggregate measure 0.6 x 0.3 x 0.1 cm. The specimen is totally submitted in one cassette. KEYONNA/ 10/12/2023 TC:4 CPT:20881
[2023-10-12 09:36] VITALS: BP 110/79; BP 132/63; PULSE 65; RESP 16; TEMP 36.6; O2SAT 100
--- NOTE | 2023-10-12 09:39 | OP.COLON_ITS ---
Patient Name: Jovita Francisco Procedure Date: 10/12/2023 8:45 AM Date of : 1975 Age: 48 Procedure: Colonoscopy Indications: High risk colon cancer surveillance: Personal history of adenoma (10 mm or greater in size) Providers: Rashid Cordon MD Medicines: See the Anesthesia note for documentation of the administered medications Patient Profile: Last Colonoscopy: 3 years ago. Complications: No immediate complications. Estimated blood loss: Minimal. Procedure: Pre-Anesthesia Assessment: - The heart rate, respiratory rate, oxygen saturations, blood pressure, adequacy of pulmonary ventilation, and response to care were monitored throughout the procedure. After I obtained informed consent, the scope was passed under direct vision. Throughout the procedure, the patient's blood pressure, pulse, and oxygen saturations were monitored continuously. The Colonoscope was introduced through the anus and advanced to the cecum, identified by palpation. The colonoscopy was somewhat difficult due to significant looping. Successful completion of the procedure was aided by straightening and shortening the scope to obtain bowel loop reduction. The patient tolerated the procedure fairly well. The quality of the bowel preparation was adequate to identify polyps greater than 5 mm in size. Scope In: 8:59:47 AM Scope Withdrawal Time 0 hours 21 minutes 45 seconds Scope Out: 9:30:33 AM Total Procedure Duration Time 0 hours 30 minutes 46 seconds Findings: Skin tags were found on perianal exam. A few small and large-mouthed diverticula were found in the sigmoid colon. No biopsies or other specimens were collected for this exam. An area of mildly congested mucosa was found in the rectum. Biopsies were taken with a cold forceps for histology. Estimated blood loss was minimal. Internal hemorrhoids were found during retroflexion. The hemorrhoids were mild, medium-sized and Grade II (internal hemorrhoids that prolapse but reduce spontaneously). One band was successfully placed at the left lateral position. There was no bleeding during the procedure. Impression: - Perianal skin tags found on perianal exam. - Diverticulosis in the sigmoid colon. No specimens collected. - Congested mucosa in the rectum. Biopsied. - Internal hemorrhoids. Banded. Recommendation: - Discharge patient to home (via wheelchair). - High fiber diet today. - No aspirin, ibuprofen, naproxen, or other non-steroidal anti-inflammatory drugs for 2 days after biopsy. - Await pathology results. - Repeat colonoscopy in 5 years for adenoma surveillance. - Telephone my office for study results in 1 week. Procedure Code(s): --- Professional --- 27122, Colonoscopy, flexible; with band ligation(s) (eg, hemorrhoids) 59514, Colonoscopy, flexible; with biopsy, single or multiple Diagnosis Code(s): --- Professional --- Z86.010, Personal history of colonic polyps K64.4, Residual hemorrhoidal skin tags K64.1, Second degree hemorrhoids K62.89, Other specified diseases of anus and rectum K57.30, Diverticulosis of large intestine without perforation or abscess without bleeding CPT copyright 2021 [employer]. All rights reserved. The codes documented in this report are preliminary and upon bed laborer review may be revised to meet current compliance requirements. Rashid Cordon MD 10/12/2023 9:38:24 AM This report has been signed electronically. Number of Addenda: 0 Note Initiated On: 10/12/2023 8:45 AM
--- NOTE | 2023-10-12 09:39 | OP.CCLET_ITS ---
10/12/2023 Lilliana Hall MD [address] [place] [address] [place] [address] Re : Colonoscopy procedure for [facility] Dear Dr. Hall This procedure was performed on October. My impressions and recommendations are as follows: Impressions : - Perianal skin tags found on perianal exam. - Diverticulosis in the sigmoid colon. No specimens collected. - Congested mucosa in the rectum. Biopsied. - Internal hemorrhoids. Banded. Recommendations : - Discharge patient to home (via wheelchair). - High fiber diet today. - No aspirin, ibuprofen, naproxen, or other non-steroidal anti-inflammatory drugs for 2 days after biopsy. - Await pathology results. - Repeat colonoscopy in 5 years for adenoma surveillance. - Telephone my office for study results in 1 week. My findings are described in the full procedure note, which is enclosed. If I can be of further assistance, please feel free to contact me at Doctor phone number(s): , Work: . Sincerely, Rashid Cordon MD 10/12/2023 9:38:24 AM This report has been signed electronically.
--- NOTE | 2023-10-12 09:39 | PCM.POST.ANE ---
Anesthesia: Postop Eval I Current Vital Signs Temperature: 98 F Pulse Rate: 80 Blood Pressure: 118/79 Respiratory Rate: 16 Pulse Ox: 100 Oxygen Delivery Method: Room Air Assessment Airway patent: Yes Spontaneous unlabored respirations: Yes nausea: No Vomiting: No Anesthesia Complication: No Fluid Hydration Crystalloid volume administer (ml): 500 Total IV fluid infused: 500 Progress Note Anesthesia document: Postop Eval 1 completed: Yes
[2023-10-12 09:40] VITALS: BP 118/79; BP 128/76; BP 132/63; PULSE 55; PULSE 80; RESP 16; TEMP 36.6; O2SAT 100
--- NOTE | 2023-10-12 09:40 | PCM.POSTANE2 ---
Anesthesia Postop Eval I Sum Postop Eval Completion status Anesthesia document: Postop Eval 1 completed: Yes Anesthesia Postop Eval I Summary Anesthesia Postop Eval I Summary: Anesthesia Postop Eval I: Assessment Summary Airway patent Yes 10/12/23 09:40 Spontaneous unlabored Yes 10/12/23 09:40 respirations Mental status nausea No 10/12/23 09:40 Vomiting No 10/12/23 09:40 Anesthesia Postop Eval I: Fluid Summary Crystalloid volume administer 500 10/12/23 09:40 (ml) Colloids volume administered ( ml) Blood Product volume administered (ml) Total IV fluid infused 500 10/12/23 09:40 Anesthesia Postop Eval I: Summary Notes Anesthesia Complication No 10/12/23 09:40 Anesthesia Complication Comment: Post-operative progress note Anesthesia: Postop Eval II Evaluation Mental status: Awake Pain Level: 0 nausea: No Vomiting: No Complications Anesthesia Complication: No
[2023-10-12 09:45] VITALS: BP 131/84; BP 132/63; BP 145/87; PULSE 53; PULSE 61; RESP 16; TEMP 36.7; O2SAT 100
[2023-10-12 09:54] VITALS: BP 132/63
--- NOTE | 2023-10-12 10:16 | PCM.POSTANE2 ---
Anesthesia Postop Eval I Sum Postop Eval Completion status Anesthesia document: Postop Eval 1 completed: Yes Anesthesia Postop Eval I Summary Anesthesia Postop Eval I Summary: Anesthesia Postop Eval I: Assessment Summary Airway patent Yes 10/12/23 09:40 Spontaneous unlabored Yes 10/12/23 09:40 respirations Mental status Awake 10/12/23 09:40 nausea No 10/12/23 09:40 Vomiting No 10/12/23 09:40 Anesthesia Postop Eval I: Fluid Summary Crystalloid volume administer 500 10/12/23 09:40 (ml) Colloids volume administered ( ml) Blood Product volume administered (ml) Total IV fluid infused 500 10/12/23 09:40 Anesthesia Postop Eval I: Summary Notes Anesthesia Complication No 10/12/23 09:40 Anesthesia Complication Comment: Post-operative progress note Anesthesia: Postop Eval II Evaluation Mental status: Awake Pain Level: 0 nausea: No Vomiting: No
== END 2023-10-12 09:59 | disposition home or self-care (01) ==
LOC: EN 07:02 → AC 07:03
PROVIDERS: Anesthesiology; PCP Internal Medicine; Referring Provider Surgery; Visit Provider Surgery
PROC: 0DJD8ZZ Inspection of Lower Intestinal Tract, Via Natural or Artificial Opening Endoscopic (ICD-10-PCS; CPT 45378; principal; 2023-10-12 08:25)
DX: Z12.11 Encounter for screening for malignant neoplasm of colon (principal); K57.30 Diverticulosis of large intestine without perforation or abscess without bleeding; I10 Essential (primary) hypertension; Z86.010 Personal history of colon polyps; K64.1 Second degree hemorrhoids; G43.909 Migraine, unspecified, not intractable, without status migrainosus; Z79.899 Other long term (current) drug therapy; K21.9 Gastro-esophageal reflux disease without esophagitis; F32.A Depression, unspecified; F41.9 Anxiety disorder, unspecified; K64.4 Residual hemorrhoidal skin tags; K62.89 Other specified diseases of anus and rectum
CPT/HCPCS: 45398; 45380; 81025; 88305; J7120; J2405

== ENCOUNTER → 2023-12-18 | Outpatient (CLI) | payer OTHER, SELFPAY ==
[2023-12-18 10:12] LABS: HIV - WCH Non-Reactive (Nonreactive); Hepatitis C Antibody Non-Reactive (Nonreactive); Syphilis Antibodies Non-reactive
[2023-12-19 07:09] LABS: HSV 2 IgG < 0.91 index (0.00-0.90)
[2023-12-20 04:08] LABS: Chlamydia By Nucleic Acid AMP Negative (Negative); Gonococcus By Nucleic Acid AMP Negative (Negative)
[2023-12-21 16:10] LABS: HPV APTIMA, High Risk Negative (Negative)
== END | disposition home or self-care (01) ==
PROVIDERS: PCP Internal Medicine; Referring Provider Nurse Practitioner Women's Health; Visit Provider Nurse Practitioner Women's Health
DX: Z12.4 Encounter for screening for malignant neoplasm of cervix (principal); Z20.2 Contact with and (suspected) exposure to infections with a predominantly sexual mode of transmission
CPT/HCPCS: 36415; 86695; 86696; 86703; 86780; 86803; 87491; 87591; 87624; 88175; G0145

== ENCOUNTER → 2024-08-21 | Outpatient (CLI) | payer OTHER, SELFPAY ==
[2024-08-21 15:49] LABS: Absolute Lymphocyte Count 2.74 X10^3/uL (0.83-4.51); Absolute Neutrophil Count 5.3 X10^3/uL (2.0-7.7); Basophil# 0.09 X10^3/uL; Eosinophil# 0.58 X10^3/uL; Eosinophils% 6.2 % (0-5); Hemoglobin 13.3 g/dL (12.0-15.0); Lymphocyte # 2.74 X10^3/ul (0.83-4.51); Lymphocyte % 29.4 % (19-41); Mean Corp Hgb Conc 32.4 g/dL (32-36); Mean Corpuscular Hgb 29.2 pg (27.0-32.0); Mean Corpuscular Volume 89.9 fL (81-99); Mean Platelet Vol. 10.7 fl (6.2-12.0); Monocyte# 0.57 X10^3/uL; Monocyte% 6.1 % (0-10); NRBC Flagged by Analyzer 0 % (0-5); Platelet Count 488 K/mm3 (150-450); RBC Distribution Width CV 15.1 % (11.6-14.6); Red Blood Count 4.56 M/mm3 (4.2-5.4); White Blood Count 9.3 K/mm3 (4.4-11.0)
[2024-08-22 10:56] LABS: ALB/GLOB Ratio 1.6 RATIO (0.9-2.4); AST(SGOT) 25 U/L (<=31); Alanine Aminotransfer ALT/SGPT 25 U/L (<=34); Albumin, Serum 4.4 g/dL (3.5-5.0); Alkaline Phosphatase 101 U/L (35-104); Anion Gap 11 (5-15); BUN 7 mg/dL (4-19); BUN/Creat Ratio 8.5 RATIO (10-20); Calcium,Total 9.1 mg/dL (7.6-11.0); Carbon Dioxide 25.1 mmol/L (21.0-32.0); Chloride 102 mmol/L (98-108); Cholesterol 204 mg/dL (<=200); Creatinine, Serum 0.81 mg/dL (0.70-1.20); EST Glomerular Filtration Rate 89 (>60); Globulin 2.8 g/dL (2.2-4.2); Glucose 93 mg/dL (70-99); High Density Lipoprotein 51 mg/dL; Low Density Lipoprotein Calc. 119 mg/dL; Potassium 4.2 mmol/L (3.3-5.1); Protein, Total 7.1 g/dL (5.9-8.4); Sodium Level 138 mmol/L (133-145); Total Bilirubin 0.18 mg/dL (0.00-1.30); Triglycerides 174 mg/dL; Very Low Density Lipoprotein 35 mg/dL (5-40); cholesterol:hdl ratio screen 4.04
== END | disposition home or self-care (01) ==
LOC: BIMLAB 14:09
PROVIDERS: PCP Internal Medicine; Referring Provider Internal Medicine; Visit Provider Internal Medicine
DX: Z00.00 Encounter for general adult medical examination without abnormal findings (principal)
CPT/HCPCS: 36415; 80053; 80061; 85025

== ENCOUNTER → 2024-08-30 | Outpatient (CLI) | payer OTHER, SELFPAY ==
--- NOTE | 2024-08-30 07:44 | BI_ITS ---
EXAM: SCRN MAMM (CAD)W/JOSE BILAT DATE: 08/30/2024 CLINICAL HISTORY: F, Age 49 y/o , SCREEN FOR BREAST CANCER Aunt with breast cancer. History of prior left ultrasound-guided breast biopsy. BREAST CANCER RISK ASSESSMENT: Not assessed. TECHNIQUE: Bilateral screening digital breast tomosynthesis with 2D and 3D images. Computer aided detection. COMPARISON: Prior exam(s) dated August 30, 2023.. FINDINGS: TISSUE DENSITY: The breast tissue is heterogenously dense, which may obscure small masses. Bilateral Breast Mammographic Findings: No significant masses, calcifications or other abnormalities are identified. A tissue clip marker is once again seen in the upper lateral aspect of the left breast. No suspicious masses, areas of developing architectural distortion, or suspicious calcifications. There has been no significant interval change. BI/SCRN MAMM (CAD)W/JOSE BILAT IMPRESSION: OVERALL FINAL ASSESSMENT: BIRADS 2 BENIGN FINDING RECOMMENDATION: Routine annual follow-up in 1 Year A letter with findings and recommendations will be mailed to the patient. Reading Location: [place] [id number]
== END | disposition home or self-care (01) ==
PROVIDERS: PCP Internal Medicine; Referring Provider Nurse Practitioner Women's Health; Visit Provider Nurse Practitioner Women's Health
DX: Z12.31 Encounter for screening mammogram for malignant neoplasm of breast (principal)
CPT/HCPCS: 77063; 77067

== ENCOUNTER → 2024-12-19 | Outpatient (CLI) | payer OTHER, SELFPAY ==
[2024-12-19 09:23] LABS: Hematocrit 37.5 % (37-47); Hemoglobin 12.5 g/dL (12.0-15.0); Immature Granulocytes Count 0.020 X10^3/uL (0.0-0.0); Mean Corp Hgb Conc 33.3 g/dL (32-36); Mean Corpuscular Volume 88.2 fL (81-99); Mean Platelet Vol. 9.9 fl (6.2-12.0); NRBC Flagged by Analyzer 0 % (0-5); Platelet Count 438 K/mm3 (150-450); RBC Distribution Width CV 15.8 % (11.6-14.6); RBC Distribution Width SD 50.7 fl (35.1-43.9); Red Blood Count 4.25 M/mm3 (4.2-5.4); White Blood Count 7.9 K/mm3 (4.4-11.0)
[2024-12-19 09:57] LABS: AST(SGOT) 46 U/L (<=31); Alanine Aminotransfer ALT/SGPT 48 U/L (<=34); Albumin, Serum 4.3 g/dL (3.5-5.0); Alkaline Phosphatase 90 U/L (35-104); Anion Gap 12 (5-15); BUN 6 mg/dL (4-19); BUN/Creat Ratio 7.9 RATIO (10-20); Calcium,Total 8.8 mg/dL (7.6-11.0); Carbon Dioxide 24.1 mmol/L (21.0-32.0); Chloride 102 mmol/L (98-108); Globulin 2.8 g/dL (2.2-4.2); Glucose 112 mg/dL (70-99); Potassium 4.0 mmol/L (3.3-5.1); Vitamin D,25 Hydroxy 11.5 ng/mL (30-100)
== END | disposition home or self-care (01) ==
LOC: BWCLAB 09:07
PROVIDERS: PCP Internal Medicine; Referring Provider Nurse Practitioner Family; Visit Provider Nurse Practitioner Family
DX: R53.83 Other fatigue (principal)
CPT/HCPCS: 36415; 80053; 82306; 84439; 84443; 85025